=== PATIENT | male | born 1990 | race Caucasian/White ===

== ENCOUNTER 2017-02-26 16:24 | Emergency (ER) | payer BC ==
[~2017-02-26] VITALS: Ht 185.4 cm; Wt 88.5 kg
[~2017-02-26 16:24] MED LIST: BACITUD TOP; CEPH-443 PO; FAMO20TA18 PO; IBUP-1542 PO; LORA-441 PO
[2017-02-26 16:25] VITALS: Ht 185.4 cm; Wt 88.5 kg
--- NOTE | 2017-02-26 17:33 | ERD ---
ER Documentation Chief Complaint Date/Time DATE: 02/26/17 TIME: 17:30 Chief Complaint bilat hand numbness x today thinks it is from nexium HPI 26-year-old male presents to the emergency department complaining of bilateral hand numbness that lasted for about a couple hours. Patient states that it has resolved. He states that he has been having symptoms of gastritis and taking Nexium with an antacid that was prescribed from a different doctor. Patient was not sure if they happen from the Nexium. Patient states that he got very worried. He denies any chest pain or shortness of breath. Denies any history of anxiety ROS All systems reviewed and are negative except as per history of present illness. Medications Home Meds Active Scripts Ibuprofen* (Motrin*) 600 Mg Tab, 600 MG PO Q6H Y for PAIN AND OR ELEVATED TEMP, #30 TAB Prov:COREEN VENEGAS MD 05/20/16 Ibuprofen* (Ibuprofen*) 600 Mg Tablet, 600 MG PO Q6 for 3 Days, TAB Prov:PIYUSH HOWARD 01/11/16 Bacitracin* (Bacitracin Oint (UD)*) 1 Applic Oint, 1 APPLIC TOP ONCE for 7 Days , PKT APPLY TO Prov:ANITAPIYUSH Mckee 01/11/16 Cephalexin* (Keflex*) 500 Mg Capsule, 500 MG PO QID for 7 Days, CAP Prov:PIYUSH HOWARD 01/11/16 Lorazepam* (Ativan*) 0.5 Mg Tablet, 0.5 MG PO Q8, #10 TAB Prov:PIYUSH HOWARD 11/23/15 Famotidine* (Famotidine*) 20 Mg Tablet, 40 MG PO BID, #30 Prov:YOSEPH KAPLAN PA-C 12/30/14 Reported Medications Lorazepam* (Ativan*) 0.5 Mg Tablet, 0.5 MG PO TID Y for ANXIETY, TAB 06/19/14 Allergies Allergies: Coded Allergies: No Known Allergy (Unverified , 02/26/17) PMhx/Soc History of Surgery: No Anesthesia Reaction: No Hx Neurological Disorder: No Hx Respiratory Disorders: No Hx Cardiac Disorders: No Hx Psychiatric Problems: Yes (ANXIETY) Hx Miscellaneous Medical Probl: No Hx Alcohol Use: No Hx Substance Use: No Hx Tobacco Use: No Physical Exam Vitals Vital Signs Date Time Temp Pulse Resp B/P Pulse Ox O2 Delivery O2 Flow Rate FiO2 02/26/17 16:25 99.1 78 18 136/84 98 Physical Exam GENERAL: well-developed/well-nourished, in no apparent distress, non-toxic appearing HENT: NC/AT, bilateral tympanic membrane is normal with good cone of light, nares patent, oropharynx clear without exudates EYES: Conjunctiva normal, PERRLA, EOMI, no nystagmus noted NECK: Supple, no lymphadenopathy PULM: CTA bilaterally, no rales, rhonchi, or wheezing heard CV: Normal S1S2, RRR, good capillary refill GI: Soft, non-distended, normal bowel sounds, non-tender BACK: No midline tenderness, no masses, No CVAT EXT: No clubbing, cyanosis, or edema NEURO: Alert and orientated to person, place, and time. CN II-IIX intact. Gait and coordination were normal. Hand psychiatric orderly strength were equal and within normal limits SKIN: Intact, normal turgor PSYCH: Normal mood and mentation, patient denied SI Procedures/MDM This is a 26-year-old male presenting to the emergency department complaining of paresthesias, this likely due to anxiety. On examination patient appears well, he has normal neurologic exam. There was no evidence of any ACS or any pulmonary conditions. Patient stable to be discharged home with precautions to return emergency department for any worsening symptoms. He understands and agrees with plan Departure Diagnosis: Primary Impression: Paresthesia Condition: Stable Patient Instructions: Your Body's Response to Anxiety, Paraesthesias Additional Instructions: FOLLOW UP WITH YOUR PRIMARY CARE PHYSICIAN TOMORROW.Return to this facility if you are not improving as expected. ROMA ALMODOVAR PA-C Feb 26, 2017 17:33
== END 2017-02-26 17:31 | disposition home or self-care (01) ==
LOC: FTE 16:24
DX: R20.2 Paresthesia of skin (principal)
CPT/HCPCS: 99282

== ENCOUNTER 2018-03-29 08:34 | Emergency (ER) | END 2018-03-29 10:33 | disposition home or self-care (01) ==

== ENCOUNTER 2018-11-02 16:00 | Emergency (ER) | payer SELFPAY ==
[~2018-11-02] VITALS: Ht 180.3 cm; Wt 94.7 kg
[~2018-11-02 16:00] MED LIST changes: +DOCU-144 PO
[2018-11-02 16:14] VITALS: BP 121/67; PULSE 80; RESP 20; Ht 180.3 cm; Wt 94.7 kg
== END 2018-11-02 17:13 | disposition left against medical advice (07) ==
LOC: FTE 16:00
DX: Z53.21 Procedure and treatment not carried out due to patient leaving prior to being seen by health care provider (principal)
CPT/HCPCS: 93005